=== PATIENT | male | born 1990 ===

== ENCOUNTER 2017-09-03 13:50 | Emergency (ER) | payer OTHER ==
[~2017-09-03] VITALS: Ht 167.6 cm; Wt 70.3 kg
== END 2017-09-03 19:16 | disposition home or self-care (01) ==
LOC: ER 13:50
DX: S60.222A Contusion of left hand, initial encounter (principal); W22.8XXA Striking against or struck by other objects, initial encounter; Y93.89 Activity, other specified; Y92.69 Other specified industrial and construction area as the place of occurrence of the external cause; Y99.8 Other external cause status